=== PATIENT | female | born 1955 | race Caucasian/White ===

== ENCOUNTER 2025-03-26 06:32 | Day surgery (SDC) | payer OTHER ==
[~2025-03-26] VITALS: Ht 160 cm; Wt 83.5 kg
[2025-03-26] MEDS ORDERED: SODIUM CHLORIDE 0.9% 1,000 ML ONE (07:16)
[2025-03-26] MEDS: SODIUM CHLORIDE 0.9% 1,000 ML IV ONE (07:41)
[2025-03-26] MEDS ORDERED: FentaNYL CITRATE PF 100 MCG/2 ML VIAL ONE (08:20)
[2025-03-26] MEDS ORDERED: MIDAZOLAM HCL 2 MG/2 ML VIAL ONE (08:21)
[2025-03-26] MEDS ORDERED: NALOXONE HCL 0.4 MG/ML VIAL ONE (08:21)
[2025-03-26] MEDS ORDERED: FLUMAZENIL 0.1 MG/ML 5 ML VIAL IVP ONE (08:21)
[2025-03-26] MEDS ORDERED: DiphenhydrAMINE HCL 50 MG/ML VIAL ONE (08:21)
[2025-03-26] MEDS ORDERED: SODIUM TETRADECYL SULFATE 3% 60 MG/2 ML VIAL IVP ONE (08:21)
[2025-03-26] MEDS ORDERED: ATROPINE SULFATE 0.1 MG/ML 10 ML SYRINGE IVP ONE (08:22)
[2025-03-26] MEDS ORDERED: EPINEPHrine 1:10,000 [1 MG/10 ML] SYRINGE ONE (08:22)
[2025-03-26 08:55] VITALS: PULSE 72; RESP 18; O2SAT 98
[2025-03-26] MEDS ORDERED: MethylPREDNISolone SOD SUCC 125 MG/2 ML VIAL ONE (09:27)
[2025-03-26] MEDS: MethylPREDNISolone SOD SUCC 125 MG/2 ML VIAL IVP ONE (09:53)
[2025-03-26] MEDS ORDERED: FLUT16H NASAL (10:59)
[2025-03-26] MEDS ORDERED: ATEN-73 PO (10:59)
[2025-03-26] MEDS ORDERED: CHOL200059 PO (10:59)
[2025-03-26] MEDS ORDERED: CYAN-53 PO (10:59)
[2025-03-26] MEDS ORDERED: OS500 PO (10:59)
[2025-03-26] MEDS ORDERED: PRAV20TA4 PO (11:00)
[2025-03-26] MEDS ORDERED: BENZ200C53 PO (11:02)
[2025-03-26] MEDS ORDERED: MONT-40 PO (11:02)
[2025-03-26] MEDS ORDERED: LIDOCAINE 2% 11 ML JELLY ONE (12:00)
[2025-03-26] MEDS ORDERED: BENZOCAINE 20% 50 MCG/SPRAY 57 GM ONE (12:00)
[2025-03-26] MEDS ORDERED: LIDOCAINE 4% 50 ML SOLUTION ONE (12:00)
[2025-03-26] MEDS ORDERED: ALBUTEROL SULFATE 2.5 MG/0.5 ML NEB SOLUTION NEB ONE (12:00)
== END 2025-03-26 13:30 | disposition home or self-care (01) ==
LOC: SURGERY 06:32
PROVIDERS: ATTEND Internal Medicine Critical Care Medicine
DX: R05.3 Chronic cough (principal); R04.2 Hemoptysis; J98.09 Other diseases of bronchus, not elsewhere classified; J98.8 Other specified respiratory disorders; J84.10 Pulmonary fibrosis, unspecified; L40.9 Psoriasis, unspecified
CPT/HCPCS: 31623; 87206; 87101; 87220; 87070; 88108; 31624; 71045; 87015; J3010; J2250; J2919; J7030; J0171; J0461; J1200; J2310; J3490; J7613; Z7610